=== PATIENT | female | born 1985 | race Caucasian/White ===

== ENCOUNTER 2021-07-03 12:43 | Emergency (ER) | payer SELFPAY ==
[2021-07-03 13:03] VITALS: BP 104/66; PULSE 85; TEMP 97.5; BMI 24.1
[2021-07-03] MEDS ORDERED: ONDANSETRON 4 MG/2 ML VIAL IVPUSH ONE (13:38)
[2021-07-03] MEDS ORDERED: ACETAMINOPHEN 1000 MG/100 ML VIAL (NON FORMULARY) IVPB ONE (13:38)
[2021-07-03] MEDS: SODIUM CHLORIDE 0.9% 500 ML INFUS.BAG IV ONE ×2 (14:40→15:10)
[2021-07-03] MEDS ORDERED: ONDANSETRON 4 MG/2 ML VIAL ONE (14:56)
[2021-07-03] MEDS ORDERED: ACETAMINOPHEN INJECTION 100 ML IVPB ONE (15:00)
[2021-07-03 15:06] LABS: URINE APPEARANCE CLEAR; URINE BILIRUBIN NEGATIVE (NEGATIVE); URINE COLOR YELLOW; URINE GLUCOSE (UA) NEGATIVE (NEGATIVE); URINE KETONE NEGATIVE (NEGATIVE); URINE LEUK ESTERASE NEGATIVE (NEGATIVE); URINE NITRITE NEGATIVE (NEGATIVE); URINE PROTEIN NEGATIVE (NEGATIVE); URINE UROBILINOGEN 0.2 mg/dL (0.2-1.0)
[2021-07-03 15:22] LABS: BASO % 0.8 % (0-2.0); EOS % 1.4 % (0-4.5); HEMATOCRIT 38.4 % (32.4-45.2); MCH 25.7 pg (25.7-33.7); MCHC 33.7 g/dl (32.0-36.0); MEAN CELL VOLUME 76.3 fl (80-96); MEAN PLT VOLUME 9.1 fl (7.5-11.1); MONO % 4.8 % (3.8-10.2); PLATELET COUNT 227 10^3/uL (134-434); RBC 5.04 M/mm3 (3.60-5.2); RDW 15.9 % (11.6-15.6); WHITE BLOOD COUNT 11.1 K/mm3 (4.0-10.0)
[2021-07-03 15:30] LABS: INR 1.05 (0.83-1.09); PROTHROMBIN TIME (PATIENT) 12.9 SEC (9.7-13.0)
[2021-07-03 15:51] LABS: CHLORIDE 104 mmol/L (98-107); SODIUM 139 mmol/L (136-145)
[2021-07-03 15:54] LABS: CALCIUM 9.6 mg/dL (8.5-10.1)
[2021-07-03 15:55] LABS: ALBUMIN 4.2 g/dl (3.4-5.0); ANION GAP 6 MMOL/L (8-16); BLOOD UREA NITROGEN 12.2 mg/dL (7-18); CO2 28 mmol/L (21-32); GLUCOSE,RANDOM 75 mg/dL (74-106)
[2021-07-03 15:56] LABS: LIPASE 121 U/L (73-393)
[2021-07-03 15:58] LABS: CREATININE 0.8 mg/dL (0.55-1.3); PHOSPHOROUS 4.3 mg/dL (2.5-4.9); SGOT/AST 28 U/L (15-37); SGPT/ALT 38 U/L (13-61)
[2021-07-03 16:00] LABS: ALK PHOS 115 U/L (45-117); BILIRUBIN,TOTAL 0.8 mg/dL (0.2-1); TOT PROT 8.2 g/dl (6.4-8.2)
== END 2021-07-03 16:00 | disposition left against medical advice (07) ==
LOC: JER 12:43
PROC: 3E033GC Introduction of Other Therapeutic Substance into Peripheral Vein, Percutaneous Approach (ICD-10-PCS; principal; 2021-07-03)
DX: R10.32 Left lower quadrant pain (principal); R11.2 Nausea with vomiting, unspecified
CPT/HCPCS: 36415; 71045-TC-FY; 80053; 81003; 82550; 83605; 83690; 83735; 84100; 84484; 85025; 85610; 85730; 87086; 93005; 93010; 99285-25

== ENCOUNTER 2021-11-19 20:08 | Emergency (ER) | payer SELFPAY ==
[2021-11-19 20:16] VITALS: BP 111/76; PULSE 60; TEMP 97.1; BMI 24.1
[2021-11-19] MEDS ORDERED: ACETAMINOPHEN 325 MG TABLET (FP) PO ONE (21:28)
[2021-11-19] MEDS ORDERED: FAMOTIDINE 20 MG TABLET PO ONE (21:28)
== END 2021-11-19 23:30 | disposition left against medical advice (07) ==
LOC: JER 20:08
DX: K62.5 Hemorrhage of anus and rectum (principal)
CPT/HCPCS: 99283-25